=== PATIENT | female | born 1995 ===

== ENCOUNTER 2016-09-14 11:43 | Emergency (ER) | payer SELFPAY ==
[2016-09-14] MEDS ORDERED: Tetracaine 0.5% OPTH.SOL 4 ML* 1 DROP BTL BOTH EYES ONE (12:29)
[2016-09-14] MEDS ORDERED: Fluorescein Sodium TOPICAL* 1 MG TEST OPHTHALMIC ONE (12:33)
[2016-09-14] MEDS ORDERED: BSS OPTH.SOL* BTL ONE (12:34)
[2016-09-14] MEDS ORDERED: Fluorescein Sodium TOPICAL* 1 MG TEST ONE (12:34)
[2016-09-14] MEDS ORDERED: Tetracaine 0.5% OPTH.SOL 15ML* BTL ONE (12:35)
[2016-09-14] MEDS ORDERED: Tobramycin 0.3% OPHTH.SOL* 5 ML BOT (regular eye drops) BOTH EYES ONE (12:54)
--- NOTE | 2016-09-14 13:27 | UC ---
Eye Complaint HPI - HPI Summary HPI Summary: CAME BACK FROM [place] AND [facility]ED [facility]; WAS GIVEN POLYTRIM EYEDROPS IN [place] 10 DAYS AGO. DROPS GAVE SOME RELIEF BUT SYMPTOMS DID NOT GO AWAY. LAST NIGHT FELL ASLEEP WITH CONTACT LENSES IN EYES. PAIN IN EYES R>L . PAIN WITH LIGHT. - History of Current Complaint Chief Complaint: UCEye Stated Complaint: EYE COMPLAINT Time Seen by Provider: 09/14/16 12:26 Hx Obtained From: Patient Hx Last Menstrual Period: Mirena IUD Onset/Duration: Sudden Onset, Lasting Weeks, Still Present, Worse Since - LAST NIGHT Severity Initially: Mild Severity Currently: Moderate Location of Injury: Conjunctiva Character: Dull Aggravating Factor(s): Light, Contact Lens Associated Signs And Symptoms: Positive: Photophobia, Drainage (Clear), Drainage (Purulent) Related History: Similar Episode, Meds/Drops Used: - POLYTRIM - Risk Factors Penetrating Injury Risk Factor: Negative Globe Rupture Risk Factors: Negative Acute Glaucoma Risk Factors: Eye Inflammation Optic Artery Occlusion Risk Factors: Negative - Allergies/Home Medications Allergies/Adverse Reactions: Allergies Allergy/AdvReac Type Severity Reaction Status Date / Time No Known Allergies Allergy Verified 09/14/16 12:16 PMH/Surg Hx/FS Hx/Imm Hx Previously Healthy: Yes Endocrine History Of: Denies: Diabetes, Thyroid Disease Cardiovascular History Of: Denies: Cardiac Disorders, Hypertension Respiratory History Of: Denies: COPD, Asthma GI/ History Of: Denies: Ulcer - Surgical History Surgical History: None - Family History Known Family History: Negative: Diabetes - Social History Alcohol Use: Weekly Alcohol Amount: weekend Substance Use Type: None Smoking Status (MU): Never Smoked Tobacco - Immunization History Most Recent Influenza Vaccination: season Review of Systems Constitutional: Negative Skin: Negative Eyes: Eye Redness ENT: Negative Respiratory: Negative Cardiovascular: Negative Gastrointestinal: Negative Genitourinary: Negative Motor: Negative Neurovascular: Negative Musculoskeletal: Negative Neurological: Negative Psychological: Negative All Other Systems Reviewed And Are Negative: Yes Physical Exam Triage Information Reviewed: Yes Appearance: Well-Appearing, No Pain Distress, Well-Nourished Vital Signs: Initial Vital Signs Temp 96.5 F 09/14/16 12:06 Pulse 66 09/14/16 12:06 Resp 18 09/14/16 12:06 BP 114/74 09/14/16 12:06 Pulse Ox 98 09/14/16 12:06 Vital Signs Reviewed: Yes Eyes: Positive: Conjunctiva Inflamed, Other: - FLUORESCEIN UPTAKE BILATERAL CORNEA, ENT Exam: Normal ENT: Positive: Normal ENT inspection, Hearing grossly normal, Pharynx normal, TMs normal Dental Exam: Normal Neck exam: Normal Neck: Positive: Supple, Nontender, No Lymphadenopathy Respiratory Exam: Normal Respiratory: Positive: Chest non-tender, Lungs clear, Normal breath sounds, No respiratory distress Cardiovascular Exam: Normal Cardiovascular: Positive: RRR, No Murmur Abdominal Exam: Normal Musculoskeletal Exam: Normal Musculoskeletal: Positive: Strength Intact, ROM Intact Neurological Exam: Normal Psychological Exam: Normal Skin Exam: Normal Eye Complaint Course/Dx - Differential Dx/Diagnosis Differential Diagnosis/HQI/PQRI: Conjunctivitis, Corneal Abrasion, Keratitis, Uveitis Provider Diagnoses: BILATERAL EYE CORNEAL ABRASIONS. BILATERAL CONJUNCTIVITIS - Physician Notification/Consults Instructed by Provider To: Have Pt Call For Appt. Discharge - Discharge Plan Condition: Stable Disposition: HOME Prescriptions: Tobramycin 0.3% OPHTH.JOSSELINE* 1 drop BOTH EYES Q4H #1 btl Patient Education Materials: Corneal Abrasion (ED) Forms: *School Release Referrals: [facility] [Outside] Non Staff,Doctor [Primary Care Provider] - Prosper Newton MD [Medical Doctor] -
== END 2016-09-14 13:16 | disposition home or self-care (01) ==
LOC: UCEAST 11:43
DX: S05.02XA Injury of conjunctiva and corneal abrasion without foreign body, left eye, initial encounter (principal); S05.01XA Injury of conjunctiva and corneal abrasion without foreign body, right eye, initial encounter; H10.9 Unspecified conjunctivitis; X58.XXXA Exposure to other specified factors, initial encounter
CPT/HCPCS: 99202; A9270-GY; G0463

== ENCOUNTER 2017-04-25 23:11 | Emergency (ER) | payer OTHER ==
[2017-04-26 02:35] VITALS: BP 114/64
--- NOTE | 2017-04-26 08:52 | RAD ---
INDICATION: Occipital trauma COMPARISON: None. TECHNIQUE: Contiguous axial sections of the brain were obtained from the skull base to the vertex without contrast. FINDINGS: The ventricles, cisterns and sulci are within normal limits. The [place]-white matter differentiation is adequately maintained and there is no sulcal effacement. No significant focal abnormality or mass effect is present. There is no evidence for intracranial hemorrhage. No significant focal osseous abnormality is present. The visualized portion of the paranasal sinuses and mastoid air cells appear clear. IMPRESSION: Normal CT of the brain.
--- NOTE | 2017-05-01 15:23 | ED ---
Demond Mendoza Thomas, scribed for Natty Jackson MD on 04/26/17 at 0207 . Head Injury - HPI Summary HPI Summary: The patient is a 21 y/o F presenting to the ED complaining of head pressure status post striking her head on the ground in an accidental fall that occurred 3-4 hours ago. Her buttocks took the brunt of the impact. She is accompanied by her friend who states that she was confused for 30 seconds after the fall. She denies headache, head pain, LOC, CP, SOB, N/V/D, abd pain, back pain, rashes , and bruises. Per her friend, the patient is acting normally. - History Of Current Complaint Chief Complaint: EDHeadInjury Stated Complaint: FALL/HEAD INJURY Time Seen by Provider: 04/26/17 01:32 Hx Obtained From: Patient Hx Last Menstrual Period: Mirena IUD Mechanism Of Injury: Fall From A Standing Position Onset/Duration: Started Days Ago - 3-4 hours prior to arrival, Still Present Severity Currently: None Pain Intensity: 0 Pain Scale Used: 0-10 Numeric Character: Other: - Pressure Aggravating Factor(s): Other: - Nothing Alleviating Factor(s): Other: - Nothing Associated Signs And Symptoms: Other: - Confusion; NEGATIVE: headache, head pain , LOC, CP, SOB, N/V/D, abd pain, back pain, rashes, and bruises. - Allergies/Home Medications Allergies/Adverse Reactions: Allergies Allergy/AdvReac Type Severity Reaction Status Date / Time No Known Allergies Allergy Verified 04/25/17 23:18 PMH/Surg Hx/FS Hx/Imm Hx Previously Healthy: Yes Endocrine/Hematology History: Denies: Hx Diabetes, Hx Thyroid Disease Cardiovascular History: Denies: Hx Hypertension Respiratory History: Denies: Hx Asthma, Hx Chronic Obstructive Pulmonary Disease (COPD) GI History: Denies: Hx Ulcer - Surgical History Surgery Procedure, Year, and Place: None - Immunization History Immunizations Up to Date: No Infectious Disease History: No Infectious Disease History: Denies: Hx Clostridium Difficile, Hx Hepatitis, Hx Human Immunodeficiency Virus (HIV), Hx of Known/Suspected MRSA, Hx Shingles, Hx Tuberculosis, Hx Known/ Suspected VRE, Hx Known/Suspected VRSA, History Other Infectious Disease, Traveled Outside the [place] in Last 30 Days - Family History Known Family History: Negative: Diabetes - Social History Alcohol Use: Weekly Alcohol Amount: weekend Substance Use Type: Reports: None Smoking Status (MU): Never Smoked Tobacco Review of Systems Negative: Fever Negative: Blurred Vision, Diplopia Negative: Sore Throat Negative: Chest Pain Negative: Shortness Of Breath Negative: Abdominal Pain, Vomiting, Diarrhea, Nausea Negative: dysuria, hematuria Negative: Other - back pain Negative: Rash, Bruising Neurological: Other - Head pressure, head trauma, confusion; NEGATIVE: head pain , LOC Negative: Anxious, Depressed All Other Systems Reviewed And Are Negative: No Physical Exam - Summary Physical Exam Summary: Appearance: Alert, conversive, nontoxic appearing Skin: Warm, dry, no mottling, no rashes, no contusions HEENT: EOMI, PERRL, moist mucous membranes Neck: No masses on the neck, supple Respiratory: Clear to auscultation, breath sounds present, no rales, no rhonchi , no wheezes Cardiovascular: RRR, pulses are symmetrical in both lower and upper extremities Abdomen: Soft, non-tender Bowel Sounds: Present Musculoskeletal: She has some tenderness to her right proximal buttock. No CVA tenderness, no obvious deformity, moving all extremities in a grossly normal manner Neurological: A&Ox3, CN II-XII Intact, moving all extremities symmetrically Psychiatric: Normal affect and mood Triage Information Reviewed: Yes Vital Signs On Initial Exam: Initial Vitals Temp Pulse Resp BP Pulse Ox 98.0 F 80 16 124/91 99 04/25/17 23:15 04/25/17 23:15 04/25/17 23:15 04/25/17 23:15 04/25/17 23:15 Vital Signs Reviewed: Yes - [place] Coma Scale Coma Scale Total: 15 Diagnostics - Vital Signs Vital Signs Temp Pulse Resp BP Pulse Ox 04/25/17 23:15 98.0 F 80 16 124/91 99 - Laboratory Lab Statement: Any lab studies that have been ordered have been reviewed, and results considered in the medical decision making process. Head Injury Course/Dx Assessment/Plan: The patient is a 21 y/o female who struck her head on the ground in an accidental fall. CT Brain is negative for acute findings. Patient will be discharged home with follow up at [facility]. - Diagnoses Provider Diagnoses: Concussion, Contusion of buttock Discharge - Discharge Plan Condition: Stable Disposition: HOME Patient Education Materials: Concussion (ED), Contusion in Adults (ED) Referrals: Non Staff,Doctor [Primary Care Provider] - Additional Instructions: Take tylenol and motrin for pain. you have a concussion. you may have chronic headaches, concentration problems or memory problems. if this is the case, please follow up with your doctor and discuss the need for follow up with the concussion clinic. return if worse or any new symptoms. you may take tylenol and motrin for pain. Follow up with the campus doctor in 2-3 days. The documentation as recorded by the Demond luna Thomas accurately reflects the service I personally performed and the decisions made by , Natty Jackson MD.
== END 2017-04-26 02:35 | disposition home or self-care (01) ==
LOC: ED 23:11
DX: S06.0X0A Concussion without loss of consciousness, initial encounter (principal); S30.0XXA Contusion of lower back and pelvis, initial encounter; W19.XXXA Unspecified fall, initial encounter; Y93.9 Activity, unspecified; Y92.9 Unspecified place or not applicable
CPT/HCPCS: 70450; 99282